=== PATIENT | male | born 1970 | race Caucasian/White ===

== ENCOUNTER 2021-04-21 15:58 | Emergency (ER) | payer MEDICAID, SELFPAY ==
[~2021-04-21] VITALS: Ht 165.1 cm; Wt 74.8 kg
[2021-04-21 16:30] VITALS: BP_SYST 136
--- NOTE | 2021-04-21 16:30 | NUR ---
Pt. bib BLS with flu/covid like symptoms X 2 days, sore throat, fever, cough, chills, weakness and feneralized body aches, is vaccinated for covid but roommate tested covid + 4 days ago
--- NOTE | 2021-04-21 16:58 | NUR ---
Patient to ER tent for evaluation. Side rails up. Assumed care.
--- NOTE | 2021-04-21 17:28 | NUR ---
ER at bedside examining patient.
[2021-04-21] MEDS ORDERED: ALBU8.5H8 INH (18:06)
[2021-04-21] MEDS ORDERED: PRED20TA PO (18:06)
[2021-04-21] MEDS ORDERED: IBUP-1971 PO (18:09)
[2021-04-21] MEDS: IBUPROFEN 800 MG TABLET PO ONE (18:28)
[2021-04-21 18:45] VITALS: BP_SYST 127
--- NOTE | 2021-04-21 18:45 | NUR ---
Patient given written and verbal discharge instructions and verbalizes understanding. ER DR. Bush discussed with patient the results and treatment provided. Patient in stable condition. ID arm band removed. Rx of albuterol and prednisone given. Patient educated on pain management and to follow up with PMD. Pain Scale 0. Opportunity for questions provided and answered. Medication side effect fact sheet provided.
== END 2021-04-21 18:45 | disposition home or self-care (01) ==
LOC: SED 15:58
DX: U07.1 COVID-19 (principal); I10 Essential (primary) hypertension; E11.9 Type 2 diabetes mellitus without complications; Z79.899 Other long term (current) drug therapy
CPT/HCPCS: 36415; 71045; 86710; 99284